=== PATIENT | male | born 1960 | race Caucasian/White ===

== ENCOUNTER 2021-01-30 13:32 | Inpatient (IN) ==
[2021-01-30 17:06] LABS: ABS Basophils 0.1 10^3/ul (0-0.2); ABS Eosinophils 0.3 10^3/ul (0-0.6); ABS Lymphocytes 0.9 10^3/ul (1.0-4.8); ABS Monocytes 0.8 10^3/ul (0-0.8); Eosinophil % 4.9 %; Hematocrit 49 % (42-52); Hemoglobin 16.9 g/dL (14.0-18.0); Lymphocyte % 12.7 %; Mean Corpuscular HGB Conc 34 g/dL (31-36); Mean Corpuscular Hemoglobin 32 pg (27-31); Mean Corpuscular Volume 94 fL (80-94); Mean Platelet Volume 7.5 fL (7.4-10.4); Nucleated Red Blood Cells % 0.1; Platelet Count 261 10^3/uL (150-450); Red Blood Count 5.25 10^6 /uL (4.18-5.48); Red Cell Distribution Width 13 % (10-15); White Blood Count 7.1 10^3/uL (3.5-10.8)
[2021-01-30 17:13] LABS: INR 1.04 (0.86-1.15)
[2021-01-30 17:23] LABS: Albumin/Globulin Ratio 1.3 (1-3); C Reactive Protein 7.09 mg/L (<8.01); Calcium 9.1 mg/dL (8.6-10.3); EGFR African American 90.6 (>60); EGFR Non-African American 74.9 (>60); Globulin 3.1 g/dL (2-4); Potassium 4.3 mmol/L (3.5-5.0); Total Bilirubin 0.6 mg/dL (0.2-1.0); Total Protein 7.1 g/dL (6.4-8.9)
[2021-01-30] MEDS ORDERED: Ketorolac *IM* INJ 60 MG/2 ML VIAL IM ONE (17:39)
[2021-01-30] MEDS ORDERED: Morphine 4 MG/ML VIAL (1 ml) IV ONE (19:56)
[2021-01-30] MEDS ORDERED: Albuterol HFA INHALER 8 gm MDI INH PRN (22:12)
[2021-01-30 23:01] LABS: Hematocrit 47 % (42-52); Hemoglobin 16.1 g/dL (14.0-18.0)
[2021-01-30 23:24] LABS: Rapid COVID-19 Molecular Undetected (Undetected)
[2021-01-31] MEDS: Lactated Ringers 1000 ml BAG 1,000 ML IV SCH ×3 (00:56→23:52)
[2021-01-31] MEDS: Pantoprazole VIAL 40 MG VIAL IV SCH ×2 (00:56→21:17)
[2021-01-31] MEDS: Morphine 2 MG/ML SYRINGE IV PRN ×4 (03:19→23:52)
[2021-01-31 05:04] LABS: Hematocrit 46 % (42-52); Hemoglobin 15.6 g/dL (14.0-18.0)
[2021-01-31 07:51] LABS: ABS Basophils 0.1 10^3/ul (0-0.2); ABS Eosinophils 0.2 10^3/ul (0-0.6); ABS Lymphocytes 1.2 10^3/ul (1.0-4.8); ABS Monocytes 0.6 10^3/ul (0-0.8); ABS Neutrophils 3.7 10^3/ul (1.5-7.7); Eosinophil % 3.8 %; Hematocrit 44 % (42-52); Hemoglobin 15.5 g/dL (14.0-18.0); Lymphocyte % 21.2 %; Mean Corpuscular HGB Conc 35 g/dL (31-36); Mean Corpuscular Hemoglobin 33 pg (27-31); Mean Corpuscular Volume 93 fL (80-94); Mean Platelet Volume 7.4 fL (7.4-10.4); Nucleated Red Blood Cells % 0.1; Platelet Count 235 10^3/uL (150-450); Red Blood Count 4.77 10^6 /uL (4.18-5.48); Red Cell Distribution Width 14 % (10-15); White Blood Count 5.7 10^3/uL (3.5-10.8)
[2021-01-31 08:08] LABS: Calcium 8.7 mg/dL (8.6-10.3); EGFR African American 94.9 (>60); EGFR Non-African American 78.4 (>60); Potassium 3.8 mmol/L (3.5-5.0)
[2021-01-31 08:14] LABS: INR 1.12 (0.86-1.15)
[2021-01-31] MEDS: Ondansetron 4 mg VIAL 2 MG/ML 2 ml VIAL IV PRN ×2 (15:10→23:53)
[2021-02-01 04:55] LABS: ABS Eosinophils 0.3 10^3/ul (0-0.6); ABS Lymphocytes 1.3 10^3/ul (1.0-4.8); ABS Monocytes 0.6 10^3/ul (0-0.8); ABS Neutrophils 3.2 10^3/ul (1.5-7.7); Eosinophil % 5.4 %; Hematocrit 42 % (42-52); Hemoglobin 14.2 g/dL (14.0-18.0); Lymphocyte % 24.1 %; Mean Corpuscular HGB Conc 34 g/dL (31-36); Mean Corpuscular Hemoglobin 32 pg (27-31); Mean Corpuscular Volume 95 fL (80-94); Mean Platelet Volume 7.5 fL (7.4-10.4); Platelet Count 221 10^3/uL (150-450); Red Blood Count 4.43 10^6 /uL (4.18-5.48); Red Cell Distribution Width 13 % (10-15); White Blood Count 5.4 10^3/uL (3.5-10.8)
[2021-02-01] MEDS: Morphine 2 MG/ML SYRINGE IV PRN ×3 (05:04→22:38)
[2021-02-01] MEDS ORDERED: Calcium Carb (TUMS) 500 mg CHEW TAB PO PRN (14:01)
[2021-02-01 14:52] LABS: Hematocrit 42 % (42-52); Hemoglobin 14.8 g/dL (14.0-18.0)
[2021-02-01] MEDS ORDERED: PEG 3000 GI LAVAGE 1 GALLON PO ONE (17:00)
[2021-02-01] MEDS: Pantoprazole VIAL 40 MG VIAL IV SCH (22:38)
[2021-02-02 06:21] LABS: Hematocrit 44 % (42-52); Hemoglobin 14.7 g/dL (14.0-18.0); Mean Corpuscular HGB Conc 34 g/dL (31-36); Mean Corpuscular Hemoglobin 32 pg (27-31); Mean Corpuscular Volume 95 fL (80-94); Mean Platelet Volume 7.6 fL (7.4-10.4); Platelet Count 224 10^3/uL (150-450); Red Cell Distribution Width 13 % (10-15)
[2021-02-02 06:40] LABS: Calcium 8.7 mg/dL (8.6-10.3); EGFR African American 92.7 (>60); EGFR Non-African American 76.6 (>60); Potassium 3.9 mmol/L (3.5-5.0)
[2021-02-02] MEDS ORDERED: Propofol 10 MG/ML 20 ML BTL ONE ×3 (10:20→11:15)
[2021-02-02] MEDS: Morphine 2 MG/ML SYRINGE IV PRN ×2 (13:45→21:26)
[2021-02-02] MEDS: Pantoprazole VIAL 40 MG VIAL IV SCH (21:26)
[2021-02-03] MEDS: Morphine 2 MG/ML SYRINGE IV PRN (01:37)
[2021-02-03 06:13] LABS: Hematocrit 42 % (42-52); Hemoglobin 14.4 g/dL (14.0-18.0); Mean Corpuscular HGB Conc 34 g/dL (31-36); Mean Corpuscular Hemoglobin 33 pg (27-31); Mean Corpuscular Volume 94 fL (80-94); Mean Platelet Volume 7.7 fL (7.4-10.4); Platelet Count 223 10^3/uL (150-450); Red Blood Count 4.42 10^6 /uL (4.18-5.48); Red Cell Distribution Width 13 % (10-15)
[2021-02-03] MEDS: Pantoprazole VIAL 40 MG VIAL IV SCH (20:30)
[2021-02-04] MEDS: Ondansetron 4 mg VIAL 2 MG/ML 2 ml VIAL IV PRN ×2 (00:09→09:05)
[2021-02-04 07:00] LABS: Hematocrit 44 % (42-52); Hemoglobin 15.3 g/dL (14.0-18.0)
[2021-02-04 10:58] VITALS: BP 140/81
== END 2021-02-04 12:44 | disposition home or self-care (01) | DRG 394 ==
LOC: ED 13:32 → SUATTDRO 21:42 → MED 21:42
PROVIDERS: ADMIT Internal Medicine; ATTEND Internal Medicine

== ENCOUNTER 2022-05-18 23:36 | Inpatient (IN) ==
[2022-05-19 00:11] LABS: ABS Basophils 0.1 10^3/ul (0-0.2); ABS Eosinophils 0.4 10^3/ul (0-0.6); ABS Lymphocytes 1.8 10^3/ul (1.0-4.8); ABS Monocytes 0.6 10^3/ul (0-0.8); ABS Neutrophils 3.4 10^3/ul (1.5-7.7); Eosinophil % 5.9 %; Hematocrit 50 % (42-52); Hemoglobin 16.5 g/dL (14.0-18.0); Mean Corpuscular HGB Conc 33 g/dL (31-36); Mean Corpuscular Hemoglobin 32 pg (27-31); Mean Corpuscular Volume 95 fL (80-94); Mean Platelet Volume 7.4 fL (7.4-10.4); Nucleated Red Blood Cells % 0.1; Platelet Count 268 10^3/uL (150-450); Red Blood Count 5.19 10^6 /uL (4.18-5.48); Red Cell Distribution Width 13 % (10-15); White Blood Count 6.3 10^3/uL (3.5-10.8)
[2022-05-19 00:36] LABS: Activated Partial Thrombo Time 32.3 seconds (26.0-38.0); INR 1.07 (0.88-1.18)
[2022-05-19 01:08] LABS: Albumin 4.2 g/dL (3.2-5.2); Albumin/Globulin Ratio 1.5 (1-3); Calcium 9.3 mg/dL (8.6-10.3); Globulin 2.8 g/dL (2-4); HDL Cholesterol 46.8 mg/dL; Potassium 4.1 mmol/L (3.5-5.0); Total Bilirubin 0.8 mg/dL (0.2-1.0); eGFR CKD-EPI 79.3 (>60)
[2022-05-19 06:13] LABS: ABS Basophils 0.1 10^3/ul (0-0.2); ABS Eosinophils 0.3 10^3/ul (0-0.6); ABS Lymphocytes 1.4 10^3/ul (1.0-4.8); ABS Monocytes 0.8 10^3/ul (0-0.8); ABS Neutrophils 2.7 10^3/ul (1.5-7.7); Eosinophil % 6.4 %; Hematocrit 44 % (42-52); Lymphocyte % 26.7 %; Mean Corpuscular HGB Conc 34 g/dL (31-36); Mean Corpuscular Hemoglobin 32 pg (27-31); Mean Corpuscular Volume 95 fL (80-94); Mean Platelet Volume 7.4 fL (7.4-10.4); Platelet Count 233 10^3/uL (150-450); Red Blood Count 4.68 10^6 /uL (4.18-5.48); Red Cell Distribution Width 13 % (10-15); White Blood Count 5.3 10^3/uL (3.5-10.8)
[2022-05-19 06:52] LABS: Blood Urea Nitrogen 17 mg/dL (6-24); CO2 Carbon Dioxide 27 mmol/L (22-32); Calcium 8.1 mg/dL (8.6-10.3); Chloride 109 mmol/L (101-111); Glucose 94 mg/dL (70-100); Sodium 141 mmol/L (135-145); eGFR CKD-EPI 88.3 (>60)
[2022-05-19 07:15] LABS: Anion Gap 5 mmol/L (2-11)
[2022-05-19 11:29] LABS: Vitamin B12 201 pg/mL (180-914)
[2022-05-19] MEDS ORDERED: Acetaminophen IV 1 GM/100ML 1,000 MG/100 ML BAG IV PRN (12:33)
[2022-05-19 18:06] VITALS: BP 156/91
== END 2022-05-19 20:00 | disposition home or self-care (01) | DRG 111 ==
LOC: ED 23:36 → EDHOLD 05-19 01:48 → SUATTDRO 05-19 01:48 → EDHOLD 05-19 15:06 → MEDTELE 05-19 17:12
PROVIDERS: ADMIT Student in an Organized Health Care Education/Training Program; ATTEND Internal Medicine